=== PATIENT | male | born 1985 | race Caucasian/White ===

== ENCOUNTER 2019-03-13 13:47 | Inpatient (IN) ==
[2019-03-13] MEDS ORDERED: ZOFRAN IV ONE (14:47)
[2019-03-13] MEDS ORDERED: NS 1,000 ML IV ONE (14:47)
[2019-03-13] MEDS ORDERED: ATIVAN IV ONE (14:49)
--- NOTE | 2019-03-13 14:53 | PROVIDER DOCUMENTATION ---
HPI-Neurological Disorder - General Chief Complaint: Seizure Stated Complaint: SEIZURE Time Seen by Provider: 03/13/19 14:10 Source: patient Allergies/Adverse Reactions: Patient Allergies Allergy/AdvReac Type Severity Reaction Status Date / Time divalproex sodium Allergy Unknown RASH Verified 01/02/19 17:18 [From Depakote] phenytoin sodium * Allergy Unknown Unknown Verified 01/02/19 17:18 [From Dilantin] phenytoin sodium extended * Allergy Unknown Unknown Verified 01/02/19 17:18 [From Dilantin] Home Medications: Home Medication List Medication Instructions Recorded Confirmed Last Taken Type Lamotrigine [Lamictal] 400 mg PO DAILY 10/28/18 03/13/19 Unknown History Venlafaxine HCl [Venlafaxine HCl 150 mg PO DAILY 10/28/18 03/13/19 Unknown History ER] Quetiapine Fumarate [Seroquel] 300 mg PO HS 01/02/19 03/13/19 Unknown History - History of Present Illness-Neuro Nature of Presenting Problem: 34 yr old M, hx of seizure disorder, presenting via EMS with reports of three witnessed seizures by his , in a span of 3 hrs, the longest of which lasted about 2 minutes. The reports jerking and shaking, possible tongue biting, and after the last seizure, a post-ictal state that the pt didn't completely come out of. Tremors and jerking were noted, and tongue biting was reported, though no obvious trauma noted when examining the pt. The pt is usually on lamictal, and per his , his doctor recently changed him from immediate release to time released lamotrigine. Headache Location: reports: frontal Severity: reports: moderate Onset/Duration: reports: 1-3 hours ago Timing: reports: still present Character of Altered Mental Status: reports: seizure activity (post-ictal) Any recent trauma/injury?: reports: none Character of Deficits: denies: new weakness Cognitive Baseline: alert, oriented x3 Review of Systems - Adult - REVIEW OF SYSTEMS - ADULT Constitutional: reports: no symptoms reported Eyes: reports: no symptoms reported. denies: blurred vision Ears, Nose, Mouth & Throat: reports: no symptoms reported Cardiovascular: reports: no symptoms reported Respiratory: reports: no symptoms reported Gastrointestinal: reports: no symptoms reported Genitourinary: reports: no symptoms reported Musculoskeletal: reports: no symptoms reported Integumentary: reports: no symptoms reported Neurological: reports: headache/migraines, seizure Endocrine: reports: no symptoms reported Past History - Adult - PAST MEDICAL HISTORY-ADULT Review of Records: reports: Old Records Reviewed, Nursing Assessment Review Major Childhood Illnesses: reports: denies history Cardiovascular: reports: denies history Respiratory: reports: denies history Gastrointestinal: reports: denies history Obstetrical/Gynecological: reports: denies history Genitourinary: reports: kidney stones Musculoskeletal: reports: denies history Neurological: reports: Seizures/Epilepsy Psychiatric: reports: depression Endocrine/Immune: reports: denies history Other Conditions: reports: denies history - PRIOR SURGERIES/PROCEDURES Surgical/Procedure History: reports: other (stones) - PRIOR HOSPITALIZATIONS Prior Hospitalizations: reports: none - IMMUNIZATION STATUS Childhood Immunizations: See Nurse Assessment Flu Vaccine: See Nurse Assessment - FAMILY HISTORY Family History: reviewed, not pertinent - SOCIAL HISTORY Smoking: greater than 1 pack/day Provider spent 3-5 mins advising pt. on dangers of tobacco.: Discussed manners to quit use, and f/u contacts for add'l counseling. Living Situation: family Physical Exam- Neurological - Physical Exam-Neuro Initial Vital Signs Reviewed: Yes General Appearance: alert, thin, slow to respond Eye Exam: bilateral eye: PERRL, EOMI HENMT: normocephalic/atraumatic, moist mucous membranes, other (no tongue lacerations or bleeding noted) Head Injury: no evidence of injury Neck: full range of motion Respiratory: lungs clear, normal breath sounds Cardiovascular: regular rate, rhythm Abdominal Exam: normal bowel sounds, non tender, soft Extremity: no pedal edema, no calf tenderness legend maker Exam: normal hearing, PERRL. negative: facial asymmetry Motor/Sensory: no motor deficit, no sensory deficit Neurologic: no motor/sensory deficits. negative: focal weakness Integumentary: warm/dry Psych/Mental Status: oriented x 3 - Glascow Coma Scale Best Eye Response: (4) open spontaneously Best Verbal Response: (5) oriented Best Motor Response: (6) obeys commands Progress - PLAN OF CARE/RESULTS Progress/Plan/Lab Results: Vital Signs - 8 hr 03/13/19 13:57 03/13/19 14:21 03/13/19 14:24 Temperature 96.5 F L Pulse Rate 87 90 96 H Respiratory Rate 24 20 22 Blood Pressure 121/84 123/78 121/84 O2 Sat by Pulse Oximetry 97 97 96 03/13/19 15:28 03/13/19 15:30 03/13/19 15:45 Temperature Pulse Rate 91 H 88 93 H Respiratory Rate 17 19 21 Blood Pressure 104/70 112/73 124/81 O2 Sat by Pulse Oximetry 97 97 98 03/13/19 16:02 03/13/19 16:30 03/13/19 16:31 Temperature Pulse Rate 92 H 96 H Respiratory Rate 20 18 Blood Pressure 103/67 111/84 O2 Sat by Pulse Oximetry 97 98 98 03/13/19 16:46 03/13/19 17:00 Temperature Pulse Rate 95 H 93 H Respiratory Rate 22 22 Blood Pressure 113/69 104/67 O2 Sat by Pulse Oximetry 97 96 Laboratory Results - last 24 hr 03/13/19 03/13/19 03/13/19 14:18 14:18 14:18 WBC 26.26 H RBC 5.17 Hgb 15.7 Hct 46.4 MCV 89.7 MCH 30.4 MCHC 33.8 RDW Std Deviation 13.0 Plt Count 365 MPV 10.3 Immature Gran % (Auto) 1.6 H Neut % (Auto) 81.9 H Lymph % (Auto) 10.0 L Mcintosh % (Auto) 5.1 Eos % (Auto) 1.1 Baso % (Auto) 0.3 Immature Gran # (Auto) 0.43 H Neut # (Auto) 21.48 H Lymph # (Auto) 2.63 Mcintosh # (Auto) 1.33 H Eos # (Auto) 0.30 Baso # (Auto) 0.09 PT INR PTT (Actin FS) Sodium 145 Potassium 4.0 Chloride 108 H Carbon Dioxide 18 L Anion Gap 19 BUN 12 Creatinine 1.1 Estimated GFR/1.73 m2 > 60 BUN/Creatinine Ratio 11 Glucose 208 H Calculated Osmolality 295 Calcium 8.8 Magnesium 2.8 H Total Bilirubin 0.16 L AST 22 ALT 12 Alkaline Phosphatase 128 H Creatine Kinase Troponin T Total Protein 8.0 Albumin 5.2 H Globulin 2.8 Albumin/Globulin Ratio 1.9 Plasma Lactate 4.9 H* Urine Source Urine Color Urine Turbidity Urine pH Ur Specific Noel Urine Protein Ur Glucose (Stick) Ur Ketones (Stick) Urine Blood Urine Nitrite Urine Bilirubin Urobilinogen Dipstick Urine Leukocytes Urine WBC (Auto) Urine RBC (Auto) U Epithel Cells (Auto) Urine Bacteria (Auto) 03/13/19 03/13/19 03/13/19 14:18 15:07 15:56 WBC RBC Hgb Hct MCV MCH MCHC RDW Std Deviation Plt Count MPV Immature Gran % (Auto) Neut % (Auto) Lymph % (Auto) Mcintosh % (Auto) Eos % (Auto) Baso % (Auto) Immature Gran # (Auto) Neut # (Auto) Lymph # (Auto) Mcintosh # (Auto) Eos # (Auto) Baso # (Auto) PT 13.9 INR 1.06 PTT (Actin FS) 27.8 Sodium Potassium Chloride Carbon Dioxide Anion Gap BUN Creatinine Estimated GFR/1.73 m2 BUN/Creatinine Ratio Glucose Calculated Osmolality Calcium Magnesium Total Bilirubin AST ALT Alkaline Phosphatase Creatine Kinase 147 Troponin T Total Protein Albumin Globulin Albumin/Globulin Ratio Plasma Lactate Urine Source CLEAN CATCH Urine Color YELLOW Urine Turbidity CLEAR Urine pH 6.0 Ur Specific Noel 1.019 Urine Protein 100 A Ur Glucose (Stick) NEGATIVE Ur Ketones (Stick) NEGATIVE Urine Blood TRACE A Urine Nitrite NEGATIVE Urine Bilirubin NEGATIVE Urobilinogen Dipstick NORMAL Urine Leukocytes NEGATIVE Urine WBC (Auto) <10 Urine RBC (Auto) <10 U Epithel Cells (Auto) <10 Urine Bacteria (Auto) NEGATIVE 03/13/19 15:56 WBC RBC Hgb Hct MCV MCH MCHC RDW Std Deviation Plt Count MPV Immature Gran % (Auto) Neut % (Auto) Lymph % (Auto) Mcintosh % (Auto) Eos % (Auto) Baso % (Auto) Immature Gran # (Auto) Neut # (Auto) Lymph # (Auto) Mcintosh # (Auto) Eos # (Auto) Baso # (Auto) PT INR PTT (Actin FS) Sodium Potassium Chloride Carbon Dioxide Anion Gap BUN Creatinine Estimated GFR/1.73 m2 BUN/Creatinine Ratio Glucose Calculated Osmolality Calcium Magnesium Total Bilirubin AST ALT Alkaline Phosphatase Creatine Kinase Troponin T < 0.010 Total Protein Albumin Globulin Albumin/Globulin Ratio Plasma Lactate Urine Source Urine Color Urine Turbidity Urine pH Ur Specific Noel Urine Protein Ur Glucose (Stick) Ur Ketones (Stick) Urine Blood Urine Nitrite Urine Bilirubin Urobilinogen Dipstick Urine Leukocytes Urine WBC (Auto) Urine RBC (Auto) U Epithel Cells (Auto) Urine Bacteria (Auto) Orders Category Date Time Status Cardiac Monitoring DIRECTED Care 03/13/19 15:39 Active IV Insertion ORDERED Care 03/13/19 15:39 Completed Notify MD of + Sepsis Screen NOW Care 03/13/19 15:39 Active Notify Physician As Ordered Care 03/13/19 15:[address] HEAD W/O CONTRAST [CT] Stat Exams 03/13/19 16:02 Taken FLAT/UPRIGHT ABD/1 VIEW CHEST [RAD] Stat Exams 03/13/19 14:48 Completed BLOOD CULTURE [BLDCUL] Stat Lab 03/13/19 17:08 Received CBC WITH ELECTRONIC DIFF [HEME] Stat Lab 03/13/19 14:18 Completed CK PROFILE [SP CHEM] Stat Lab 03/13/19 15:56 Completed COMPREHENSIVE METABOLIC PANEL [CHEM] Stat Lab 03/13/19 14:18 Completed LACTATE, PLASMA [CHEM] Stat Lab 03/13/19 14:18 Completed MAGNESIUM [CHEM] Stat Lab 03/13/19 14:18 Completed PROTIME WITH INR [COAG] Stat Lab 03/13/19 14:18 Completed PTT [COAG] Stat Lab 03/13/19 14:18 Completed TROPONIN T Stat Lab 03/13/19 15:56 Completed URINALYSIS W/POSS RFLX CULT [URINALYSIS] Stat Lab 03/13/19 15:07 Completed 0.9% Sodium Chloride Inj [Ns] 1,000 ml Med 03/13/19 14:47 Discontinued IV 999 mls/hr CefTRIAXONE [Rocephin] 1 gm Med 03/13/19 15:55 Discontinued 0.9% Sodium Chloride Inj [Ns] 50 ml IV NOW Ketorolac [Toradol] Med 03/13/19 14:56 Discontinued 30 mg IV NOW ONE Lorazepam [Ativan] Med 03/13/19 14:49 Discontinued 0.5 mg IV NOW ONE Ondansetron [Zofran] Med 03/13/19 14:47 Discontinued 8 mg IV NOW ONE Oxygen Device Stat Oth 03/13/19 15:39 Active EKG [EKG] Stat Ther 03/13/19 15:38 Ordered Transfer/Admit Order [TRANSFER] Routine Transfer 03/13/19 16:44 Ordered WBC and lactate returned elevated; spoke with hospitalist; pt will be accepted for observation and further management. Pt and made aware at bedside. Result Diagrams: 03/13/19 14:18 03/13/19 14:18 - CONSULTS/PCP/HOSPITALIST Notification #1 *Consult/PCP/Hospitalist*: Dr. Zamora Time Discussed: 16:40 Consult Disposition: Admit Departure - Departure Date of Disposition Decision: 03/13/19 Time of Disposition Decision: 17:15 DIAGNOSIS: Leukocytosis, Seizure disorder Disposition: ADMITTED INPATIENT 09 Certified Medical Emergency: Emergent Condition: Fair Referrals and Follow-Ups: Avi White Jr, MD [Primary Care Provider] - - Critical Care Note This patient required my direct & personal management of CC.: No Attestation - Physician/ MARTHA Attestation Patient care was provided by Advanced Practice Provider:: No The physician spent face to face time with patient:: Yes Advanced Practice Provider documentation review:: Supervising physician onsite and consulted in the evaluation and care of this patient. The physician did have a face to face encounter with the patient.
[2019-03-13] MEDS ORDERED: TORADOL IV ONE (14:56)
[2019-03-13 15:07] LABS: BASO# 0.09 X1000 (0.0-0.2); BASO% 0.3 % (0.0-0.8); EOS% 1.1 % (0.0-10.0); HEMATOCRIT 46.4 % (42.0-52.0); HEMOGLOBIN 15.7 g/dL (14.0-18.0); IMM GRAN# 0.43 X1000 (0.0-0.04); IMM GRAN% 1.6 % (0.0-0.5); LYMPH# 2.63 X1000 (1.2-3.4); MCH 30.4 PG (27-31); MCHC 33.8 g/dL (33-37); MCV 89.7 FL (81-99); MONO# 1.33 X1000 (0.11-0.59); MONO% 5.1 % (1.7-9.3); MPV 10.3 FL (7.4-10.4); NEUT# 21.48 X1000 (1.4-6.5); NEUT% 81.9 % (42.2-75.2); PLT 365 X1000 (130-400); RBC 5.17 XMIL (4.7-6.1); WBC 26.26 X1000 (4.8-10.8)
[2019-03-13 15:19] LABS: URINE SOURCE CLEAN CATCH
[2019-03-13 15:25] LABS: BILIRUBIN URINE NEGATIVE (NEGATIVE); BLOOD URINE TRACE (NEGATIVE); COLOR YELLOW; GLUCOSE URINE NEGATIVE (NEGATIVE); KETONE URINE NEGATIVE (NEGATIVE); LEUKOCYTES URINE NEGATIVE (NEGATIVE); NITRITE URINE NEGATIVE (NEGATIVE); PROTEIN URINE 100 mg/dL (NEGATIVE); SP GRAVITY URINE 1.019; TURBIDITY URINE CLEAR (CLEAR); UR EPITHELIAL CELLS <10 /HPF (<10); URINE BACTERIA NEGATIVE /HPF; URINE RBC <10 /HPF (<10); URINE WBC <10 /HPF (<10); UROBILINOGEN URINE NORMAL (NORMAL)
--- NOTE | 2019-03-13 15:29 | Diag Imaging Result Doc PS360 ---
EXAM: FLAT/UPRIGHT ABD/1 VIEW CHEST 03/13/2019 HISTORY: Abdominal pain TECHNIQUE: Flat and upright abdomen with AP upright chest COMMENT: There is some stool throughout the colon. The stomach and small bowel are not distended. There are multiple phleboliths in the pelvis. Compared to 02/24/2019 the appearance of the chest has not changed significantly. IMPRESSION: No evidence of acute disease. Electronically signed by Félix Kenny 03/13/2019 3:27 PM
[2019-03-13 15:33] LABS: AGAP 19; ALB/GLOB RATIO 1.9; ALBUMIN 5.2 g/dL (3.5-5.0); ALKALINE PHOSPHATASE 128 U/L (32-122); BUN 12 mg/dL (8-22); CALCIUM 8.8 mg/dL (8.8-10.2); CHLORIDE 108 mmol/L (98-107); COSMO 295; CREATININE 1.1 mg/dL (0.7-1.2); ESTIMATED GFR > 60; GLUCOSE 208 mg/dL (70-104); GOT 22 U/L (10-34); GPT 12 U/L (10-44); MAGNESIUM 2.8 mg/dL (1.5-2.7); SODIUM 145 mmol/L (136-145); TCO2 18 mmol/L (25-35); TOTAL BILIRUBIN 0.16 mg/dL (0.20-1.00)
[2019-03-13] MEDS ORDERED: ROCEPHIN 1 GM in NS 50 ML IV ONE (15:55)
[2019-03-13 16:12] LABS: INR 1.06; PROTIME 13.9 Seconds (11.0-16.0)
[2019-03-13 16:13] LABS: PTT 27.8 Seconds (22.3-41.8)
--- NOTE | 2019-03-13 17:19 | Diag Imaging Result Doc PS360 ---
EXAM: CT HEAD W/O CONTRAST 03/13/2019 HISTORY: headache, nausea TECHNIQUE: This exam was performed using automated exposure control, adjustment of mA or kV according to patient size, and/or use of iterative reconstruction technique. COMMENT: There is no evidence of mass effect, bleed, abnormal extra-axial fluid collection, hydrocephalus or acute bony abnormality. Compared to the previous examination of 10/28/2018 there has been no significant change in the appearance the brain. IMPRESSION: No evidence of acute intracranial disease. Electronically signed by Félix Kenny 03/13/2019 5:16 PM
[2019-03-13] MEDS ORDERED: ZOFRAN IV PRN (17:23)
[2019-03-13] MEDS ORDERED: ATIVAN IV PRN (17:23)
[2019-03-13] MEDS: TYLENOL PO PRN (17:42)
--- NOTE | 2019-03-13 18:28 | EKG Report ---
Test Performed on : 03/13/2019 6:23:01 PM Test Reason : CP Blood Pressure : / mmHG Vent. Rate : 089 BPM Atrial Rate : 089 BPM P-R Int : 198 ms QRS Dur : 086 ms QT Int : 392 ms P-R-T Axes : 066 062 054 degrees QTc Int : 476 ms Normal sinus rhythm. with sinus arrhythmia. Normal ECG When compared with ECG of 27-MAR-2018 13:45, No significant change was found Confirmed by Ralph LYON, Tra Cope ([id number]) on 03/14/2019 7:44:16 AM
[2019-03-13] MEDS ORDERED: G.I. COCKTAIL PO ONE (18:46)
[2019-03-13] MEDS: NS 1,000 ML IV SCH (18:55)
[2019-03-13] MEDS ORDERED: SODIUM CHLORIDE 0.9% INJ SCH (19:00)
[2019-03-13] MEDS: PROTONIX IV SCH (19:15)
[2019-03-13] MEDS: LAMICTAL PO SCH (20:14)
[2019-03-13] MEDS: SEROQUEL PO SCH (20:14)
--- NOTE | 2019-03-13 20:18 | HISTORY AND PHYSICAL ---
PRIMARY CARE PHYSICIAN: Dr. White. NEUROLOGIST: Dr. Forbes. CHIEF COMPLAINT: Seizures. HISTORY PRESENTING ILLNESS: This is a 34-year-old male who presents to [facility] via EMS, after he had a reported 3 witnessed seizures by his in a 3 hour time span, the last one lasting the longest of about 2 minutes. The reported some jerking, shaking, and possible tongue biting after the last seizure. He was postictal and is just now becoming more alert and able to answer some questions. states that approximately a month ago, his medications were changed from a Lamictal 200 mg twice a day to a Lamictal XR 400 mg daily, to help with compliance, and that the patient has been taking his medication as prescribed, but feels that he has not done as well on the once a day dosing since changing, and would like to go back to the twice a day dosing. His workup did show a white blood cell count of 26.26, plasma lactate of 4.9, so he will be admitted to the medical unit for further evaluation and treatment. PAST MEDICAL HISTORY: 1. Kidney stones. 2. Chronic back pain. 3. Diabetes type 2, diet controlled. 4. Seizure disorder. 5. Panic attacks. 6. Depression. 7. History of gastritis. SURGICAL HISTORY: He had stenting placed after kidney stones and lithotripsy. FAMILY HISTORY: His mother committed suicide approximately 2 years ago. No other chronic healthy issues in family. SOCIAL HISTORY: He currently lives with his . Is a pack a day smoker and denies any alcohol use, and uses marijuana occasionally. ALLERGIES: Depakote, Dilantin. HOME MEDICATIONS: 1. Lamictal XR 400 mg p.o. daily will be held. 2. Seroquel 300 mg p.o. at bedtime. 3. Venlafaxine 150 mg p.o. daily. LABORATORY DATA: White blood cell count of 26.26, hemoglobin 15.7, hematocrit 46.4, and platelets 365,000. PT and INR of 13.9 and 1.06. Sodium 145, potassium 4, chloride 108, CO2 18, BUN of 12, creatinine 1.1, glucose 208, magnesium of 2.8. Plasma lactate was 4.9. Urinalysis was negative. Abdomen x-ray showed no evidence of acute disease. CT of the head has been taken, but the results are pending. REVIEW OF SYSTEMS: He denied any fever, chills, blurred vision, dizziness, chest pain, coughing, shortness of breath. Denied any abdominal pain, constipation, diarrhea, burning or hurting with urination. PHYSICAL EXAMINATION: VITAL SIGNS: On arrival, he had a temperature of 96.5 degrees, pulse 87, respirations 24, blood pressure 121/84, saturating 97% on room air. GENERAL: This is a 34-year-old male who is lying in the bed. He is alert and awake and answers most questions appropriately, but is still mildly postictal at this point. at bedside to answer questions. GENERAL: This is a 34-year-old male. HEEMNT: Normocephalic, atraumatic. Normal ENT inspection. Oropharynx and nares are clear. EYES: Pupils are equal, round, and reactive to light and accommodation. Extraocular movements are intact. NECK: Normal inspection. Normal range of motion. LUNGS: Clear to auscultation bilaterally with equal lung expansion and chest wall movement. HEART: Regular rate and rhythm. No murmurs, rubs, or gallops. ABDOMEN: Soft, nontender, nondistended. Bowel sounds are present x4 quadrants. MUSCULOSKELETAL: He has 5/5 strength x4 extremities. NEUROLOGICAL: Cranial nerves 2 through 12 appear grossly intact. Again, he is still mildly postictal, but able to participate in neurological exam. ASSESSMENT: 1. Seizures. 2. Leukocytosis, most likely reactive. 3. Tobacco abuse. 4. Marijuana abuse. PLAN: 1. He will be admitted to the medical unit and placed on telemetry. 2. Diabetic diet. 3. Bed rest with bathroom privileges. 4. Normal saline at 75 mL an hour. 5. Ativan 1 mg intravenously every 4 hours p.r.n. for any further seizure episodes. 6. We will place him back on his previous Lamictal dosage of 200 mg p.o. b.i.d. at the request of , who felt that this dosage controlled his seizures better than the once a day XR dosing of 400 mg daily. 7. Will recheck a CBC and BMP in the a.m. 8. Will recheck a lactate serial every 6 hours x3. Dictated by LOS Guardado for Chris Davila MD cc: LOS Guardado MD Dr. Powell
--- NOTE | 2019-03-13 20:41 | HISTORY AND PHYSICAL ---
ADDENDUM: This is a history and physical addendum. The patient was seen and examined by me [id number]. All the laboratory, vital signs and images were reviewed. The patient presented to the emergency department due to seizures. Apparently he had 3 seizure activities today and they lasted about 2 to 3 minutes. As per the patient, he has been taking his medications as prescribed and also he has been having this kind of problem for 2 years now. He has been followed by a neurologist as an outpatient. He has been on Lamictal and he has been on Effexor, which I will continue. Recently his Lamictal was changed to 400 mg p.o. daily, but before it was 200 mg p.o. b.i.d., so I will continue with the 200 mg p.o. b.i.d. I will put this patient on Ativan as needed. He is complaining of epigastric pain, burning sensation and also generalized weakness and soreness, likely due to the seizure activity. I will put him on PPI and I will give him a GI cocktail. I will monitor this patient closely. As per the patient, he has been having seizures every week to every 2 weeks, as they do not have a cause. They do not know why he is having seizure activity. If this patient is still here by Saturday, hopefully he can be evaluated by our neurology doctor. In the meantime, I will continue with same management. He has leukocytosis, which is likely reactive. I will monitor for now. No signs of fever, chills or meningeal infection. I agree with the rest of the nurse practitioner's assessment and plan. cc: Chris Davila MD
[2019-03-14] MEDS: TYLENOL PO PRN (03:00)
[2019-03-14] MEDS: NS 1,000 ML IV SCH ×2 (06:35→21:09)
[2019-03-14 07:41] LABS: BASO# 0.02 X1000 (0.0-0.2); BASO% 0.1 % (0.0-0.8); EOS# 0.14 X1000 (0.0-0.7); HEMATOCRIT 39.4 % (42.0-52.0); HEMOGLOBIN 13.2 g/dL (14.0-18.0); IMM GRAN# 0.04 X1000 (0.0-0.04); IMM GRAN% 0.3 % (0.0-0.5); LYMPH# 1.68 X1000 (1.2-3.4); LYMPH% 11.7 % (20.5-51.1); MCH 30.5 PG (27-31); MCHC 33.5 g/dL (33-37); MONO# 1.41 X1000 (0.11-0.59); MONO% 9.8 % (1.7-9.3); NEUT# 11.09 X1000 (1.4-6.5); NEUT% 77.1 % (42.2-75.2); PLT 265 X1000 (130-400); RBC 4.33 XMIL (4.7-6.1); RDW 12.8 % (11.5-14.5); WBC 14.38 X1000 (4.8-10.8)
[2019-03-14 08:05] LABS: CALCIUM 8.2 mg/dL (8.8-10.2); POTASSIUM 3.6 mmol/L (3.5-5.1)
[2019-03-14] MEDS: LAMICTAL PO SCH ×2 (08:52→21:11)
[2019-03-14] MEDS: EFFEXOR XR PO SCH (08:52)
[2019-03-14] MEDS ORDERED: NICODERM PATCH TD PRN (10:48)
--- NOTE | 2019-03-14 13:18 | PROGRESS NOTE ---
DATE: 03/14/2019 SUBJECTIVE: This patient seems to be more stable today. No acute events overnight. His creatinine increased from 1.1 to 2. I will continue with IV fluids. CK level within normal limits and WBC decreased from 26 to 14. I do not see any signs of infection. OBJECTIVE: Vital Signs: Temperature 98.2 degrees, pulse 91, respiratory rate 21, blood pressure 127/92, oxygen saturation 98 on room air. HEENT: Head normocephalic. No trauma. PERRLA. Neck: Supple. No JVD. No masses. Central trachea. Chest: Clear to auscultation. No wheezing. No rales. Abdomen: Soft, nontender, nondistended. No hepatosplenomegaly. Extremities: Generalized soreness. No signs of infection. No edema. No clubbing. No cyanosis. Neurological: The patient is alert. He is oriented x3. No focal deficits. LABORATORY: WBC 14.3, hemoglobin 13.2, hematocrit 39.4, platelets 265,000. Sodium 138, potassium 3.6, chloride 109, bicarbonate 18, BUN 16, creatinine 2, glucose 83, calcium 8.2. CK level 168. ASSESSMENT AND PLAN: 1. Seizure activity. Apparently he had 3 episodes of seizures yesterday. As per the patient, he has seizures frequently, at least every week or so. Sometimes he can feel when the seizure is going to come and sometimes he does not feel anything. He has been followed by Neurology Department and he has an appointment this coming April [address] Forbes's office. I checked his previous EEG done this year in September and it was normal. I put this patient back on his home medications. No signs of activity today. No seizures so far during this hospitalization. If he is not having seizures tomorrow and the kidney function is better, I will send this patient home. 2. Leukocytosis, reactive. 3. Acute kidney injury. I will continue with IV fluids. CK level within normal limits. I am not sure why this patient is having acute kidney injury, probably due to dehydration. 4. Tobacco abuse. This patient has been highly advised against tobacco use. I will continue with daily cessation education and I have placed an order for a nicotine patch. 5. Marijuana use. This patient states that he smokes marijuana frequently. He has been highly advised against marijuana use. I will continue with daily cessation education as well. cc: Chris Davila MD
[2019-03-14] MEDS: PROTONIX IV SCH (17:00)
[2019-03-14] MEDS: SEROQUEL PO SCH (21:11)
[2019-03-15 07:23] LABS: BASO# 0.05 X1000 (0.0-0.2); BASO% 0.5 % (0.0-0.8); EOS# 0.19 X1000 (0.0-0.7); EOS% 1.9 % (0.0-10.0); HEMATOCRIT 40.2 % (42.0-52.0); HEMOGLOBIN 13.6 g/dL (14.0-18.0); IMM GRAN# 0.03 X1000 (0.0-0.04); IMM GRAN% 0.3 % (0.0-0.5); LYMPH# 1.88 X1000 (1.2-3.4); LYMPH% 18.4 % (20.5-51.1); MCH 30.6 PG (27-31); MCHC 33.8 g/dL (33-37); MCV 90.5 FL (81-99); MONO# 1.25 X1000 (0.11-0.59); MONO% 12.2 % (1.7-9.3); MPV 10.1 FL (7.4-10.4); NEUT# 6.82 X1000 (1.4-6.5); NEUT% 66.7 % (42.2-75.2); PLT 247 X1000 (130-400); RBC 4.44 XMIL (4.7-6.1); RDW 12.4 % (11.5-14.5); WBC 10.22 X1000 (4.8-10.8)
[2019-03-15 07:44] LABS: CALCIUM 8.7 mg/dL (8.8-10.2); CREATININE 2.4 mg/dL (0.7-1.2); POTASSIUM 4.8 mmol/L (3.5-5.1)
[2019-03-15] MEDS: EFFEXOR XR PO SCH (09:12)
[2019-03-15] MEDS: NS 1,000 ML IV SCH (09:12)
[2019-03-15] MEDS: LAMICTAL PO SCH ×3 (09:12→23:59)
--- NOTE | 2019-03-15 10:54 | PROGRESS NOTE ---
DATE: 03/15/2019 SUBJECTIVE: The patient seems to be stable, but his creatinine increased from 1.1 to 2 and now is 2.4. He seems to be eating okay and drinking okay, and apparently he is having good urine output. I will request a renal ultrasound and also we will try to calculate his FENA score. Nephrology Department has been consulted. Since he has been having seizures mostly every week, I will consult also Neurology Department to evaluate this patient tomorrow. OBJECTIVE: Vital Signs: Temperature 97.8 degrees, pulse 102, respiratory rate 16, blood pressure 138/89, oxygen saturation 98% on room air. HEENT: Head normocephalic, no trauma, PERRLA. Neck: Supple. No JVD. No masses. Central trachea. Chest: Clear to auscultation. No wheezing. No rales. Abdomen: Soft, nontender, nondistended. No hepatosplenomegaly. Extremities: No edema, no clubbing, no cyanosis. Neurological: The patient is alert. He is oriented x3. No focal neurological deficits at this moment. LABORATORY: WBC 10.2, hemoglobin 13.6, hematocrit 40.2, platelet 247,000. Sodium 146, potassium 4.8, chloride 114, bicarbonate 19, BUN 22, creatinine 2.4, glucose 85, calcium 8.7. ASSESSMENT AND PLAN: 1. Seizure activity. Apparently he had 3 episodes of seizures 2 days ago and as per the patient, he has been having seizures every week, so I will ask Dr. Forbes to evaluate this patient tomorrow. No more seizure activity during this hospitalization. 2. Leukocytosis, likely reactive, normal today. 3. Acute kidney injury. BUN and creatinine are getting a little bit worse. I have requested a kidney ultrasound and some lab work. I have consulted also Nephrology Department to evaluate this patient. 4. Tobacco abuse and marijuana use. This patient has been highly advised against tobacco and marijuana use. I will continue with daily cessation education. cc: Chris Davila MD
[2019-03-15 10:58] LABS: URINE SOURCE CLEAN CATCH
[2019-03-15 11:03] LABS: BILIRUBIN URINE NEGATIVE (NEGATIVE); BLOOD URINE NEGATIVE (NEGATIVE); COLOR STRAW; GLUCOSE URINE NEGATIVE (NEGATIVE); KETONE URINE NEGATIVE (NEGATIVE); LEUKOCYTES URINE NEGATIVE (NEGATIVE); NITRITE URINE NEGATIVE (NEGATIVE); PROTEIN URINE NEGATIVE (NEGATIVE); SP GRAVITY URINE 1.008; TURBIDITY URINE CLEAR (CLEAR); UR EPITHELIAL CELLS <10 /HPF (<10); URINE BACTERIA NEGATIVE /HPF; URINE RBC <10 /HPF (<10); URINE WBC <10 /HPF (<10); UROBILINOGEN URINE NORMAL (NORMAL)
[2019-03-15 11:23] LABS: UR CREAT RANDOM 39.4 mg/dL (14-26)
--- NOTE | 2019-03-15 11:46 | Diag Imaging Result Doc PS360 ---
EXAM: US RENAL 2 (RETROPER) COMPLETE 03/15/2019 HISTORY: LISE TECHNIQUE: Renal ultrasound COMMENT: The kidneys are hyperechoic. There is no evidence of hydronephrosis. There are some high intensity echoes in the central renal echocomplex of both kidneys which may represent stones. The largest on the right is 4 mm in diameter and a similar sized stone is seen on the left side in the mid pole. The right kidney is 11.4 x 5.9 x 5.8 cm the left is 11.5 x 5.4 x 6.1 cm. The bladder is not distended. IMPRESSION: The possibility of medical renal disease cannot be excluded. Bilateral nephrolithiasis without evidence of hydronephrosis. Electronically signed by Félix Kenny 03/15/2019 11:44 AM
[2019-03-15] MEDS: PROTONIX IV SCH (19:54)
[2019-03-15] MEDS: SEROQUEL PO SCH (19:55)
[2019-03-16] MEDS: SEROQUEL PO SCH
[2019-03-16 07:55] LABS: CALCIUM 8.2 mg/dL (8.8-10.2); CREATININE 1.6 mg/dL (0.7-1.2); MAGNESIUM 1.9 mg/dL (1.5-2.7); PHOSPHORUS 3.6 mg/dL (2.7-4.5); POTASSIUM 4.3 mmol/L (3.5-5.1)
[2019-03-16] MEDS: EFFEXOR XR PO SCH (08:14)
[2019-03-16] MEDS: LAMICTAL PO SCH (08:14)
--- NOTE | 2019-03-16 09:40 | NEPHROLOGY CONSULTATION ---
DATE: 03/16/2019 REASON FOR CONSULTATION: Acute kidney injury. HISTORY OF PRESENT ILLNESS: Mr. Arnold is a 34-year-old, white male with a history of diabetes, hypertension, seizure disorder. His only medications are related to his seizure disorder. He was brought to the emergency room because he had 3 consecutive seizures with associated altered mental status which was resolving at the time of his arrival in the emergency room. His initial evaluation found his blood pressure 121/84. His initial creatinine was 2.0 and he has been treated with IV fluids. CK was 168. Urine output is excellent according to the patient. He has never had kidney problems before that he is aware of and he has no voiding symptoms at this time. PAST MEDICAL HISTORY: As above. SOCIAL HISTORY: He smokes. No alcohol. Disabled secondary to seizure disorder. FAMILY HISTORY: Otherwise noncontributory. REVIEW OF SYSTEMS: Otherwise noncontributory. PHYSICAL EXAMINATION: Vital Signs: Blood pressure 122/86, heart rate 88, afebrile. Generally: Young, healthy-appearing man. No acute distress. Skin: Warm and dry. Conjunctivae are pink. Oropharynx is clear. Neck: Supple. Trachea is midline. Neck veins are not distended. Heart: PMI is nondisplaced. Regular rate and rhythm. No murmurs, rubs, or gallops. Lungs: Have equal excursion. Equal breath sounds. No crackles or wheezes. No accessory muscle use or retractions. Abdomen: Soft, nontender. Bowel sounds are present. No organomegaly, masses, bruits. Extremities: No edema, clubbing or cyanosis. Neurologic: Nonfocal. IMPRESSION: Acute kidney injury. Renal ultrasound was normal. UA is normal with no proteinuria. FEMA greater than 1%. Creatinine is improved today at 1.6. I expect that he will have complete resolution of his acute kidney injury. Okay for discharge from my perspective. cc: Joce Hargrove MD
[2019-03-16] MEDS: NS 1,000 ML IV SCH ×2 (11:52)
[2019-03-16 16:18] VITALS: BP 155/103
[2019-03-16] MEDS ORDERED: D5 1/2 NS + KCL 20 MEQ 1,000 ML IV SCH (17:00)
[2019-03-16] MEDS ORDERED: PROTONIX PO SCH (21:00)
--- NOTE | 2019-03-17 06:10 | CONSULTATION ---
DATE OF CONSULTATION: 03/16/2019 REASON FOR CONSULTATION: Seizure. HISTORY OF PRESENT ILLNESS: This is a 34-year-old, right-handed male with a history of seizures admitted 3 days ago with breakthrough seizures. History is from the patient and attentive . Apparently, the patient had 3 seizures in close proximity on the day of admission. They were similar in [*]with the mumbling noises followed by generalized stiffening and shaking with clinched jaw. She was not certain about other features. The events lasted under 2 minutes time. He was confused afterwards. Following the third event, he seemed to have more persistent confusion than typical so she phoned 911 for assistance. He had not been sick recently. He reports recent medication compliance although I believe in the past there has been an issue with compliance. He has been taking Lamictal 200 mg twice daily. However, about 2 months ago that was switched over to Lamictal XR 400 mg once a day in order to try to improve compliance. The patient began having seizures around 5 or so years ago. In the past, he has been on phenytoin and Depakote both of which [*]. PAST MEDICAL HISTORY: Seizure disorder. Kidney stones. Type 2 diabetes. Depression. Panic attacks. History of gastritis. Chronic back pain. FAMILY HISTORY: His mother committed suicide. No seizures. SOCIAL HISTORY: He is and lives with his . He smokes and also uses marijuana. No alcohol. He drives. ALLERGIES: They report to Dilantin and Depakote. HOME MEDICATIONS: 1. Lamictal XR 400 mg daily. 2. Seroquel. 3. Venlafaxine. REVIEW OF SYSTEMS: Balance of 12 conducted, and is otherwise negative except that detailed in the HPI. PHYSICAL EXAMINATION: He has been afebrile. Blood pressure 155/103, pulse 66, respirations 18, and 99% on room air. Mr. Arnold is supine in bed. Awake, alert and oriented. Speech fluent. Follows simple and complex commands. He is attentive and spontaneous. Pupils equal, round, and reactive to bright light. Gaze conjugate. Extraocular movements are full. Visual [place] intact to direct confrontational testing. Face symmetric with equal activation. Facial sensation intact. Tongue is midline. Palate elevates symmetrically. Shoulder shrug is full. Motor exam with no drift. Tone is symmetric in the limbs. Power is preserved in the arms and legs as tested. [id number] and rapid alternating movements a bit slowed but symmetric. He reports intact sensation to light touch in the limbs. Reflexes 2+ at the ankles, knees and wrists bilaterally. Plantar response with excessive withdrawal. Head CT noncontrast. No acute findings. LABORATORY: Labs reviewed in the chart. Creatinine as high as 2.4, current 1.6. Lactate 4.9 on admission. There was no Lamictal level drawn. No toxicology. ASSESSMENT AND PLAN: A 34-year-old male with seizure disorder on Lamictal monotherapy with questionable compliance. Admitted with breakthrough seizures. Unfortunately, urine toxicology and Lamictal levels were not obtained. The patient is being discharged on his home antiseizure medications. At the time of my consultation, I recommended he contact our office in the morning for further directions. They may wish to draw a Lamictal level. Depending on that result, they may want to increase the Lamictal dose. We discussed the seizure precautions in detail today. He reported to me that he still drives, and I informed him of the driving laws of the [facility]. He and his expressed understanding. I also advised him to stop smoking marijuana. cc: Shawna Morrell MD
--- NOTE | 2019-03-17 10:52 | DISCHARGE SUMMARY ---
ADMISSION DATE: 03/13/2019 DISCHARGE DATE: 03/16/2019 DISPOSITION: Home. FOLLOW-UP: 1. Dr. White. 2. Dr. Forbes. CONSULTATION DURING THIS ADMISSION: Neurology was consulted. Patient was seen by Dr. Forbes. Nephrology was also consulted. Patient was seen by Dr. Hargrove. INVASIVE PROCEDURES DONE DURING THIS ADMISSION: None. IMAGING STUDIES OF SIGNIFICANCE: A KUB showed no evidence of acute disease. A CT scan of the head showed no evidence of acute disease. Renal ultrasound showed possibility of medical renal disease, bilateral nephrolithiasis without evidence of hydronephrosis. ADMISSION DIAGNOSES: 1. Seizures. 2. Leukocytosis. 3. Tobacco use. 4. Marijuana abuse. DIAGNOSIS AT THE TIME OF DISCHARGE: 1. Breakthrough seizures. 2. Reactive leukocytosis. 3. Acute kidney injury, improved. 4. Tobacco use and abuse. 5. Marijuana use. 6. Insomnia. PRESENTING COMPLAINT: Seizures. HISTORY OF PRESENTING COMPLAINT: Mr. Arnold is a 34-year-old gentleman who is known to have a seizure disorder, depression, panic attacks, normally follows up with Dr. White, came in because he was having breakthrough seizures. He was admitted for further medical care. HOSPITAL COURSE: Mr. Arnold was admitted to the medical floor, was found to be remarkably dehydrated with acute kidney injury, was fluid resuscitated. Neurology was consulted. Patient was seen by Dr. Forbes. Nephrology was also consulted. Patient was seen by Dr. Hargrove. During the hospital course, Mr. Arnold's creatinine started to trend down, hydration status improved. He has been advised to repeat his renal function tests within a week and follow up with Dr. White. Mr. Arnold also follows up with Dr. Forbes on outpatient basis. He saw the patient here in the hospital. There have not been any changes to his current medications. The patient has not had any seizure since in hospital. We think he is fairly stable for discharge and to follow up with Dr. Forbes. Mr. Arnold has been advised against recreational drug use and adequate fluid oral hydration. was at the bedside at the time of the encounter. TIME SPENT FOR DISCHARGE: 32 minutes. cc: MD Dr. Christopher Jackson III, MD Reginald D. Gladish, MD
== END 2019-03-16 18:06 | disposition home or self-care (01) | DRG 101 ==
LOC: SUPCPDRO → ED 13:47 → EDIPHOLD 17:19 → SUATTDRO 17:19 → 3N 18:42
PROVIDERS: ATTEND Internal Medicine

== ENCOUNTER 2019-06-23 10:44 | Observation (INO) ==
[2019-06-23] MEDS ORDERED: ZOFRAN IV ONE (10:53)
[2019-06-23] MEDS ORDERED: PROTONIX IV ONE (10:53)
[2019-06-23] MEDS ORDERED: PEPCID IV ONE (10:53)
[2019-06-23] MEDS ORDERED: ATIVAN IV ONE (10:53)
[2019-06-23] MEDS ORDERED: NS 1,000 ML IV ONE ×2 (10:53→12:57)
[2019-06-23] MEDS ORDERED: SODIUM CHLORIDE 0.9% INJ ONE ×2 (10:53)
[2019-06-23 11:17] LABS: BASO# 0.04 X1000 (0.0-0.2); BASO% 0.2 % (0.0-0.8); EOS# 0.01 X1000 (0.0-0.7); HEMATOCRIT 44.6 % (42.0-52.0); HEMOGLOBIN 15.4 g/dL (14.0-18.0); IMM GRAN# 0.08 X1000 (0.0-0.04); IMM GRAN% 0.3 % (0.0-0.5); LYMPH# 1.49 X1000 (1.2-3.4); LYMPH% 5.7 % (20.5-51.1); MCH 30.4 PG (27-31); MCHC 34.5 g/dL (33-37); MONO# 1.61 X1000 (0.11-0.59); MONO% 6.1 % (1.7-9.3); MPV 9.9 FL (7.4-10.4); NEUT# 23.03 X1000 (1.4-6.5); NEUT% 87.7 % (42.2-75.2); PLT 383 X1000 (130-400); RBC 5.07 XMIL (4.7-6.1); RDW 11.7 % (11.5-14.5); WBC 26.26 X1000 (4.8-10.8)
[2019-06-23 11:35] LABS: INR 0.95; PROTIME 13.1 Seconds (11.0-16.0); PTT 28.7 Seconds (22.3-41.8)
[2019-06-23 11:47] LABS: AGAP 15; ALBUMIN 4.9 g/dL (3.5-5.0); ALKALINE PHOSPHATASE 111 U/L (32-122); BUN 14 mg/dL (8-22); CALCIUM 9.4 mg/dL (8.8-10.2); CHLORIDE 105 mmol/L (98-107); COSMO 284; CREATININE 0.8 mg/dL (0.7-1.2); ESTIMATED GFR > 60; GLUCOSE 174 mg/dL (70-104); GOT 27 U/L (10-34); GPT 16 U/L (10-44); POTASSIUM 4.1 mmol/L (3.5-5.1); SODIUM 140 mmol/L (136-145); TCO2 21 mmol/L (25-35); TOTAL PROTEIN 8.1 g/dL (6.3-8.3)
[2019-06-23 12:22] LABS: URINE SOURCE CLEAN CATCH
[2019-06-23 12:25] LABS: BILIRUBIN URINE NEGATIVE (NEGATIVE); BLOOD URINE TRACE (NEGATIVE); COLOR YELLOW; GLUCOSE URINE NEGATIVE (NEGATIVE); KETONE URINE 10 mg/dL (NEGATIVE); LEUKOCYTES URINE NEGATIVE (NEGATIVE); NITRITE URINE NEGATIVE (NEGATIVE); PROTEIN URINE 100 mg/dL (NEGATIVE); SP GRAVITY URINE 1.019; TURBIDITY URINE CLEAR (CLEAR); UROBILINOGEN URINE NORMAL (NORMAL)
[2019-06-23 12:26] LABS: UR EPITHELIAL CELLS <10 /HPF (<10); URINE BACTERIA NEGATIVE /HPF; URINE RBC <10 /HPF (<10); URINE WBC <10 /HPF (<10)
[2019-06-23 12:48] LABS: UR AMPHETAMINES QUAL NONE DETECTED (NONE DETECT); UR BARBITUATES QUAL NONE DETECTED (NONE DETECT); UR BENZODIAZEPIN QUAL NONE DETECTED (NONE DETECT); UR CANNABINOIDS QUAL PRESUMPTIVE POSITIVE (NONE DETECT); UR COCAINE QUAL NONE DETECTED (NONE DETECT); UR METHADONE QUAL NONE DETECTED (NONE DETECT); UR METHAMPHETAMINE QUAL NONE DETECTED (NONE DETECT); UR OPIATES QUAL NONE DETECTED (NONE DETECT); UR OXYCODONE QUAL NONE DETECTED (NONE DETECT); UR PCP QUAL NONE DETECTED (NONE DETECT); UR PROPOXYPHENE QUAL NONE DETECTED (NONE DETECT); UR TCA QUAL NONE DETECTED (NONE DETECT)
--- NOTE | 2019-06-23 12:52 | Diag Imaging Result Doc PS360 ---
CHEST-2 VIEWS - 06/23/2019 INDICATION: SEIZURE, LEUKOCYTOSIS COMPARISON: None FINDINGS: The lungs are normally expanded and clear. Heart size and mediastinal contours are normal. No pneumothorax or pleural effusion. Stable calcified granuloma in the right midlung. IMPRESSION: Negative exam. Electronically signed by Avi Holguin 06/23/2019 12:49 PM
[2019-06-23] MEDS ORDERED: NS 1,000 ML ONE (12:54)
--- NOTE | 2019-06-23 13:04 | PROVIDER DOCUMENTATION ---
This chart was entered by Adelia Sánchez Scribe, acting as scribe for Aubrey Barroso MD. HPI-General Adult - General Chief Complaint: Seizure Stated Complaint: SEIZURE Time Seen by Provider: 06/23/19 10:52 Source: patient, EMS (first response) Allergies/Adverse Reactions: Patient Allergies Allergy/AdvReac Type Severity Reaction Status Date / Time divalproex sodium Allergy Unknown RASH Verified 06/23/19 11:13 [From Depakote] phenytoin sodium * Allergy Unknown Unknown Verified 06/23/19 11:13 [From Dilantin] phenytoin sodium extended * Allergy Unknown Unknown Verified 06/23/19 11:13 [From Dilantin] Home Medications: Home Medication List Medication Instructions Recorded Confirmed Last Taken Type Lamotrigine [Lamictal] 400 mg PO DAILY 10/28/18 06/23/19 03/12/19 08:00 History Albuterol Sulfate Inhaler 2 puff INH PRN PRN 06/22/19 06/23/19 Unknown History [Ventolin Hfa] Albuterol [Albuterol Neb] 1 dose INH PRN PRN 06/22/19 06/23/19 Unknown History Budesonide/Formoterol Fumarate 1 puff INH PRN PRN 06/22/19 06/23/19 Unknown History [Symbicort 160-4.5 Mcg Inhaler] Venlafaxine [Effexor] 1 tab PO DAILY 06/22/19 06/23/19 Unknown History Gemfibrozil 600 mg PO DAILY 06/23/19 06/23/19 Unknown History - History of Present Illness -Gen Adult Nature of Presenting Problems: 34 yowm presents to the ed via ems with c/o n/v and witnessed seizure x3. per ems seizure were at approximately 0200/0600/0900 am and vomit had blood in it at 0900 seizure. pt has seizure hx and sts takes lamictal daily and denies missing a dose. pt on exam is actively vomiting, has wound noted to rt side of tongue and a/o x3 Location of Pain/Injury: reports: other (tongue) Quality of Pain: reports: aching Severity: reports: mild Onset/Duration: reports: this morning Timing: reports: intermittent Context/Activities at Onset: reports: light activity Modifying Factors: improves with: nothing Associated Symptoms: reports: nausea, seizure, vomiting. denies: back/neck pain, chest pain, diarrhea, fever/chills, shortness of breath Similar Symptoms Previously?: Yes (seizure hx) Recently seen or treated by another doctor?: No Review of Systems - Adult - REVIEW OF SYSTEMS - ADULT Constitutional: denies: chills, fever Eyes: reports: no symptoms reported Ears, Nose, Mouth & Throat: reports: see HPI, other (tongue pain) Cardiovascular: denies: chest pain, palpitations Respiratory: denies: shortness of breath, wheezing Gastrointestinal: reports: see HPI, nausea, vomiting Genitourinary: reports: no symptoms reported Musculoskeletal: reports: no symptoms reported Integumentary: reports: no symptoms reported Neurological: denies: dizziness/vertigo, headache/migraines Psychiatric: reports: no symptoms reported Endocrine: reports: no symptoms reported Hematologic/Lymphatic: reports: no symptoms reported Allergic/Immunologic: reports: no symptoms reported All Other Systems: Reviewed and Negative Past History - Adult - PAST MEDICAL HISTORY-ADULT Review of Records: reports: Old Records Reviewed, Nursing Assessment Review, Medications Reviewed, Social history reviewed & non-contributory. Major Childhood Illnesses: reports: denies history Cardiovascular: reports: hyperlipidemia Respiratory: reports: COPD Gastrointestinal: reports: denies history Genitourinary: reports: kidney stones Musculoskeletal: reports: denies history Neurological: reports: Seizures/Epilepsy Psychiatric: reports: anxiety, depression Endocrine/Immune: reports: denies history Other Conditions: reports: denies history - PRIOR HOSPITALIZATIONS Prior Hospitalizations: reports: none - IMMUNIZATION STATUS Childhood Immunizations: See Nurse Assessment Flu Vaccine: See Nurse Assessment - FAMILY HISTORY Family History: reviewed, not pertinent - SOCIAL HISTORY Smoking: cigarettes, greater than 1 pack/day Provider spent 3-5 mins advising pt. on dangers of tobacco.: Discussed manners to quit use, and f/u contacts for add'l counseling. Substance Use: alcohol, marijuana Alcohol Use Frequency: occasionally Number of drinks per typical drinking period:: 3-4 drinks Living Situation: family Physical Exam-General - PHYSICAL EXAM-ADULT Initial Vital Signs Reviewed: Yes - CONSTITUTIONAL General Appearance: alert, mild distress, thin. negative: appears well (ill appearaing) - EYES Eyes: PERRL/EOMI - HEAD, EARS, NOSE, MOUTH & THROAT HENMT: moist mucous membranes, normal ENT inspection, other (rt sided tongue poss bit) - NECK Neck: non-tender, full range of motion, supple, normal inspection - RESPIRATORY Respiratory: chest non-tender, lungs clear, normal breath sounds - CARDIOVASCULAR Cardiovascular: normal peripheral pulses, regular rate, rhythm - CHEST (BREASTS) Chest/Breast: deferred - GASTROINTESTINAL (ABDOMEN) Abdominal Exam: normal bowel sounds, non tender, soft, other (n/v seen on exam with poss blood in vomit) - GENITOURINARY Male Genitalia: deferred Rectal Exam: deferred Hemoccult Exam: deferred - LYMPHATIC Lymphatic: no adenopathy - MUSCULOSKELETAL Back Exam: no CVA tenderness, no vertebral tenderness Extremity: normal range of motion, non-tender, normal inspection, pelvis stable - SKIN Integumentary: warm/dry, pallor - NEUROLOGIC Neurologic: grossly normal - PSYCHIATRIC Psych/Mental Status: normal mood/affect, normal thought content, normal thought process, oriented x 3 Progress - PLAN OF CARE/RESULTS Progress/Plan/Lab Results: Vital Signs - 8 hr 06/23/19 10:44 Temperature 96.8 F L Pulse Rate 100 H Respiratory Rate 18 Blood Pressure 128/90 O2 Sat by Pulse Oximetry 97 Orders Category Date Time Status CBC WITH ELECTRONIC DIFF [HEME] Stat Lab 06/23/19 10:56 Ordered COMPREHENSIVE METABOLIC PANEL [CHEM] Stat Lab 06/23/19 10:56 Ordered LAMICTAL [OLIVERA] Stat Lab 06/23/19 10:50 Ordered PROTIME WITH INR [COAG] Stat Lab 06/23/19 10:56 Ordered PTT [COAG] Stat Lab 06/23/19 10:56 Ordered 0.9% Sodium Chloride Inj [Ns] 1,000 ml Med 06/23/19 10:53 Active IV 999 mls/hr Famotidine [Pepcid] Med 06/23/19 10:53 Discontinued 20 mg IV NOW ONE Lorazepam [Ativan] Med 06/23/19 10:53 Discontinued 2 mg IV NOW ONE Ondansetron [Zofran] Med 06/23/19 10:53 Discontinued 8 mg IV NOW ONE Pantoprazole [Protonix] Med 06/23/19 10:53 Discontinued 40 mg IV NOW ONE Sodium Chloride 0.9% Med 06/23/19 10:53 Discontinued 10 ml INJ NOW ONE Sodium Chloride 0.9% Med 06/23/19 10:53 Discontinued 5 - 10 ml INJ NOW ONE GI Bleed (possible) Stat Oth 06/23/19 10:49 Ordered Result Diagrams: 06/23/19 10:52 06/23/19 10:52 - XRAY 1 XRAY: Bilateral XRAY Study: Chest Impression: See EMR Report (CHEST-2 VIEWS - 06/23/2019 INDICATION: SEIZURE, LEUKOCYTOSIS COMPARISON: None FINDINGS: The lungs are normally expanded and clear. Heart size and mediastinal contours are normal. No pneumothorax or pleural effusion. Stable calcified granuloma in the right midlung. IMPRESSION: Negative exam. Electronically signed by Avi Holguin 06/23/2019 12:49 PM 06/23/19 1249 Interpreting Physician: Avi Holguin MD Dictated Date/Time: 06/23/19 1249 cc: Aubrey Barroso MD; Avi White Jr, MD) - CONSULTS/PCP/HOSPITALIST Notification #1 *Consult/PCP/Hospitalist*: DR ESTRADA Time Discussed: 13:03 Consult Disposition: Admit Departure - Departure Date of Disposition Decision: 06/23/19 Time of Disposition Decision: 13:03 DIAGNOSIS: Seizures, generalized convulsive, Lactic acidosis, Hematemesis with nausea Disposition: ADMITTED INPATIENT 09 Certified Medical Emergency: Emergent Condition: Stable Referrals and Follow-Ups: Avi White Jr, MD [Primary Care Provider] - Discharge Education: Steps to Quit Smoking, [id number] - Critical Care Note This patient required my direct & personal management of CC.: No Attestation - Physician/ MARTHA Attestation Patient care was provided by Advanced Practice Provider:: No The physician spent face to face time with patient:: Yes Advanced Practice Provider documentation review:: Supervising physician onsite and consulted in the evaluation and care of this patient. The physician did have a face to face encounter with the patient. This chart was documented by the indicated scribe, (Adelia Sánchez Scribe) and accurately reflects the services I performed and decisions made by me, Aubrey Barroso MD, as attested by the provider's signature.
[2019-06-23] MEDS ORDERED: ALBUTEROL NEB INH PRN (13:33)
[2019-06-23] MEDS ORDERED: ZOFRAN IV PRN (13:34)
[2019-06-23] MEDS: PROTONIX 80 MG in NS 80 ML IV SCH (14:13)
[2019-06-23] MEDS: NS 1,000 ML IV SCH (14:22)
[2019-06-23] MEDS ORDERED: M.V.I.-12 10 ML, FOLIC ACID 1 MG, MAGNESIUM SULFATE 1 GM, THIAMINE 100 MG in NS 1,000 ML IV ONE (14:30)
--- NOTE | 2019-06-23 15:15 | HISTORY AND PHYSICAL ---
PRIMARY CARE PHYSICIAN: Dr. Avi White. CHIEF COMPLAINT: Seizure. HISTORY OF PRESENT ILLNESS: This is a 34-year-old gentleman with a history of a seizure disorder, COPD, hyperlipidemia, who presents to the emergency room via EMS having his third seizure for the day. He reportedly had seizures at 2 a.m., at 6 a.m., and 9 a.m., with EMS being called after the 9 a.m. seizure. The patient vomited after the seizures which the states is normal for him. On arrival to the emergency room, it is documented that the patient was actively vomiting. He does have a laceration to the right side of his tongue. The states that she thinks that he injured this after the second seizure. He does have dried blood noted to his left naris and she does state that he has nosebleeds with his seizures, and that he did have a nosebleed with the 6 a.m. seizure. PAST MEDICAL HISTORY: 1. Hyperlipidemia. 2. Chronic obstructive pulmonary disease. 3. Kidney stones. 4. Seizure disorder. 5. Anxiety. SOCIAL HISTORY: He smokes about a pack a day. He does use marijuana occasionally and he does drink alcohol at times, drinking 3 to 4 drinks when he does drink. He does live with his . He is on disability. ALLERGIES: Documented are Depakote and Dilantin with unknown reactions. HOME MEDICATIONS: A list will be obtained by the nursing staff and once verified, will be restarted as appropriate. REVIEW OF SYSTEMS: Discussed with the patient with pertinent positives stated in the HPI. He denied any syncope, any dizziness, any chest pain or palpitations, any shortness of breath, cough, fever, chills, any recent weight loss or weight gain, any diarrhea, constipation, any black or bloody stools, any black vomitus. PHYSICAL EXAMINATION: GENERAL: This is a 34-year-old gentleman who was sitting up on the stretcher in the emergency room, in no distress. VITAL SIGNS: Blood pressure is 129/80, with a heart rate of 98, respirations are 18, temperature is 97.4 degrees oral, with room air saturations 97-98%. EYES: Pupils are equal, round, react to light. EOMs are intact. HENT: Head is normocephalic, atraumatic. Mucous membranes are moist. He does have a laceration noted to the right side of his tongue. NECK: Supple with trachea midline. CARDIOVASCULAR: Regular rate and rhythm. S1 and S2 are appreciated. Calves are nontender bilaterally with peripheral pulses palpable x4 extremities. PULMONARY: Breath sounds are clear with no increased work of breathing noted. Chest rises and falls symmetric with respiration. GASTROINTESTINAL: Abdomen is soft, nontender, nondistended with bowel sounds in all 4 quadrants. NEUROLOGIC: He is alert and oriented. SKIN: Warm and dry. LABS: WBC is 26.26, with hemoglobin 15.4, hematocrit 44.6, platelets of 383,000. INR 0.95. Sodium 140, potassium 4.1, BUN 14, creatinine 0.8, with a glucose of 174. Urinalysis is essentially negative. Gastroccult is positive. Urine drug screen is presumptive positive for cannabinoids. Chest x-ray reveals a negative exam. ASSESSMENT AND PLAN: 1. Seizure disorder with recent seizures. We will continue his home medication. Place him on seizure precautions and monitor. 2. Hematemesis with nausea. This very well could be secondary to swallowing blood as he does have a laceration to the right side of his tongue and he did have a nosebleed. We will monitor any vomitus. We will recheck hemoglobin and hematocrit in the morning. 3. Leukocytosis. This could be secondary to seizures. We will repeat labs in the morning and monitor temperature. 4. Chronic obstructive pulmonary disease. Give DuoNebs as needed. 5. Nicotine abuse. 6. Marijuana use. 7. He will be placed on a Protonix drip. We will give gentle hydration. We will check a blood alcohol on blood that is already in the lab. Place him on a clear liquid diet. 8. Plan was discussed with Dr. Marshall. Further treatments pending hospital course. Dictated by LOS Byers for Hung Marshall MD cc: LOS Byers MD
[2019-06-23] MEDS: TYLENOL PO PRN (15:41)
--- NOTE | 2019-06-23 22:05 | HISTORY AND PHYSICAL ---
ADDENDUM: Patient seen and examined by myself. Full note dictated and discussed with nurse practitioner. The patient presented to the hospital after having a seizure. His notes that typically when this happens he is difficult to respond for several hours. Also notes that he bites his tongue and ends up spitting up blood. We are going to admit him to the hospital, as he has had quite a lot of blood in his emesis. White count is 26. I expect this is due to his recent seizure. We are going to place him on fluids and will follow. cc: Hung Marshall MD
[2019-06-24] MEDS: PROTONIX 80 MG in NS 80 ML IV SCH (01:17)
[2019-06-24 06:07] LABS: HEMATOCRIT 37.7 % (42.0-52.0); HEMOGLOBIN 12.3 g/dL (14.0-18.0); MCH 29.4 PG (27-31); MCHC 32.6 g/dL (33-37); MCV 90.2 FL (81-99); MPV 9.8 FL (7.4-10.4); RBC 4.18 XMIL (4.7-6.1); RDW 11.5 % (11.5-14.5); WBC 12.91 X1000 (4.8-10.8)
[2019-06-24 06:29] LABS: AGAP 15; ALBUMIN 3.5 g/dL (3.5-5.0); ALKALINE PHOSPHATASE 80 U/L (32-122); BUN 9 mg/dL (8-22); CALCIUM 7.8 mg/dL (8.8-10.2); CHLORIDE 109 mmol/L (98-107); COSMO 279; CREATININE 0.7 mg/dL (0.7-1.2); ESTIMATED GFR > 60; GLUCOSE 78 mg/dL (70-104); GOT 23 U/L (10-34); GPT 10 U/L (10-44); MAGNESIUM 1.9 mg/dL (1.5-2.7); POTASSIUM 3.2 mmol/L (3.5-5.1); SODIUM 141 mmol/L (136-145); TCO2 17 mmol/L (25-35); TOTAL PROTEIN 5.9 g/dL (6.3-8.3)
[2019-06-24] MEDS: NS 1,000 ML IV SCH (07:36)
[2019-06-24] MEDS: TYLENOL PO PRN (08:36)
[2019-06-24] MEDS ORDERED: EFFEXOR XR PO SCH (09:00)
[2019-06-24] MEDS ORDERED: LAMICTAL PO SCH (09:00)
[2019-06-24 11:03] VITALS: BP 122/73
[2019-06-24] MEDS ORDERED: PROTONIX IV SCH (13:34)
--- NOTE | 2019-06-25 10:17 | DISCHARGE SUMMARY ---
ADMISSION DATE: 06/23/2019 DISCHARGE DATE: 06/24/2019 DIAGNOSES: 1. Seizure disorder with recent seizures. 2. Questionable hematemesis. 3. Leukocytosis, improved. 4. Chronic obstructive pulmonary disease. 5. Nicotine abuse. 6. Marijuana abuse. 7. Tongue laceration. DIAGNOSTICS: Chest x-ray revealed negative exam. Lungs are normally expanded and clear. Heart size and mediastinal contours are normal. No pneumothorax or pleural effusion. HOSPITAL COURSE: Mr. Arnold presented to the emergency room via EMS after having 3 seizures within about 10 hours. He was apparently actively seizing when he presented to the emergency room. He was given Ativan at this time. He had no further seizure activity. We monitored hemoglobin and hematocrit, which were stable at 12 to 15 hemoglobin, and 37 to 44. He did have an admission hemoglobin and hematocrit of 15.4 and 44.6, with discharge of 12.3 and 37.7. Today, he is awake. He is alert. He has had no further seizure activity. He has been up walking in the halls with no complaints, and thankfully he is ready for discharge. DISCHARGE PHYSICAL EXAMINATION: Vital Signs: Blood pressure is 122/73, with a heart rate of 96, respirations are 18, with room air saturations 98% to 100%. Cardiovascular: Regular rate and rhythm. S1 and S2 appreciated. Extremities: He has no lower extremity edema. Calves are nontender. Pulmonary: Breath sounds are clear with no increased work of breathing noted. Chest rises and falls symmetric with respiration. Gastrointestinal: Abdomen is soft, nontender, nondistended, with bowel sounds in all 4 quadrants. Neurologic: He is alert and oriented. DISCHARGE MEDICATIONS: 1. Effexor 75 mg p.o. daily. 2. Lamictal 400 mg p.o. daily. 3. Gemfibrozil 600 mg p.o. daily. 4. Symbicort 160/4.5 as directed. 5. Ventolin inhaler as directed. 6. Albuterol nebs as directed. FOLLOWUP: Dr. Avi White. He needs to call in the morning to schedule an appointment to be seen within the next week, sooner if needed. DISCHARGE INSTRUCTIONS: He has been instructed to call to be seen sooner or return to the ER for any syncope, dizziness, chest pain, palpitations, temperature greater than 101, any recurring seizures, any nausea, vomiting, diarrhea, constipation, black or bloody vomitus or stools, any hematuria, dysuria, frequency, urgency. DISPOSITION: He is being discharged home in stable condition with family members. TIME SPENT: This is a greater than 30-minute discharge. Dictated by LOS Byers for Hung Marshall MD cc: LOS Byers MD
--- NOTE | 2019-06-25 12:22 | DISCHARGE SUMMARY ---
ADMISSION DATE: 06/23/2019 DISCHARGE DATE: 06/24/2019 ADDENDUM: Patient seen and examined by myself. Full note dictated and discussed with nurse practitioner. The patient presented to the hospital, and was ultimately admitted after a seizure with hematemesis. Thankfully, this has resolved. White count was elevated at 24, dropped down to 12 as expected. This was likely elevated secondary to his recent seizure. Thankfully, on discharge, he is awake and alert, he is in no distress, and therefore will be discharged home. cc: Hung Marshall MD
== END 2019-06-24 12:40 | disposition home or self-care (01) ==
LOC: SUPCPDRO → P.MEDSURG 10:44 → P.ED 10:44
PROVIDERS: ATTEND Family Medicine